=== PATIENT | female | born 1965 | race Caucasian/White ===

== ENCOUNTER 2017-01-23 02:15 | Observation (INO) | payer BC ==
[~2017-01-23] VITALS: Ht 165.1 cm; Wt 87.3 kg
[~2017-01-23 02:15] MED LIST: ADDERALL XR 3030 MG PO; AMIODARONE HCL100 MG PO; AMLODIPINE BESY10 MG PO; AMLODIPINE BESYL5 MG PO; BENTYL20 MG PO; EXCEDRIN MIGRA1 EAC3 PO; HYDROCHLOROTHIA25 MG PO; IMITREX100 MG PO; IMODIUM MS REL1 EACH PO; LOPRESSOR25 MG PO; LOPRESSOR50 MG PO; NOHOMEMEDS; PREDNISONE10 M1 PO; RANITIDINE HCL150 MG PO; REGLAN10 MG PO; TOPROL XL100 MG PO; XANAX2 MG PO; ZOFRAN ODT4 MG PO; ZOLOFT100 MG PO
[2017-01-23 02:48] LABS: BASOPHIL COUNT 0.1 K/uL (0-0.1); EOSINOPHIL (%) 6.6 % (0-5); EOSINOPHIL COUNT 0.7 K/uL (0-0.3); HEMATOCRIT 42.9 % (36.0-46.0); IMMATURE GRANULOCYTE (%) 0.8 % (0.0-0.7); IMMATURE GRANULOCYTE COUNT 0.1 K/uL; INSTRUMENT ABS NEUTROPHIL CT 5.5 K/uL; LYMPHOCYTE COUNT 3.2 K/uL (1.0-2.8); MCH 28.3 PG (29.0-34.0); MCHC 31.5 G/DL (30.0-36.0); MCV 89.9 FL (83-99); NEUTROPHIL COUNT 5.5 K/uL (1.8-6.4); PLATELET COUNT 262 K/uL (156-360); RBC DIS.WIDTH-SD 42.5 % (39-53); RED BLOOD COUNT 4.77 M/uL (3.80-5.20); WHITE BLOOD COUNT 10.5 K/uL (4.1-10.2)
[2017-01-23 02:55] LABS: CHLORIDE 109 mEq/L (99-109); POTASSIUM 3.7 mEq/L (3.7-5.4); SODIUM 143 mEq/L (136-147)
[2017-01-23 02:57] LABS: GLUCOSE 108 mg/dL (70-99)
[2017-01-23 02:59] LABS: ANION GAP 8 MEQ/L (2-14); TOTAL BILIRUBIN 0.3 mg/dL (0.0-1.0)
[2017-01-23 03:01] LABS: ALKALINE PHOSPHATASE 115 IU/L (3-129); GFR ESTIMATE (CALCULATED) > 59 mL/min/
[2017-01-23 03:02] LABS: UREA NITROGEN (BUN) 18 mg/dL (9-23)
[2017-01-23 03:10] LABS: TROP-I INTERPRETATION NEGATIVE; TROPONIN-I < 0.01 ng/mL (0.0-0.30)
[2017-01-23 07:40] LABS: D-DIMER ELISA 0.35 mg/L FEU (< 0.57)
[2017-01-23] MEDS ORDERED: TOPIRAMATE200 MG PO (08:38)
[2017-01-23] MEDS ORDERED: VYVANSE70 MG PO (08:38)
[2017-01-23 09:06] VITALS: BP 125/77
[2017-01-23 10:45] LABS: TROP-I INTERPRETATION NEGATIVE; TROPONIN-I < 0.01 ng/mL (0.0-0.30)
[2017-01-23 11:29] VITALS: BP 133/72
[2017-01-23 14:56] VITALS: BP 119/56
[2017-01-23 16:13] LABS: TROP-I INTERPRETATION NEGATIVE; TROPONIN-I < 0.01 ng/mL (0.0-0.30)
== END 2017-01-23 19:49 | disposition home or self-care (01) ==
LOC: EME 02:15 → EDOF 06:53 → 5WEST 09:02
PROVIDERS: Emergency Medicine; Hospitalist; Nurse Practitioner Adult Health
DX: R07.89 Other chest pain (principal); R94.31 Abnormal electrocardiogram [ECG] [EKG]; I10 Essential (primary) hypertension; G43.909 Migraine, unspecified, not intractable, without status migrainosus; F32.9 Major depressive disorder, single episode, unspecified; I44.7 Left bundle-branch block, unspecified
CPT/HCPCS: 71020; 80053; 83880; 84484; 85025; 85379; 93005; 93306; 99281; 99285; G0378

== ENCOUNTER 2017-01-25 18:00 | Observation (INO) | payer BC ==
[~2017-01-25] VITALS: Ht 165.1 cm; Wt 89.5 kg
[~2017-01-25 18:00] MED LIST changes: +TOPIRAMATE200 MG PO; +VYVANSE70 MG PO
[2017-01-25 18:58] LABS: HEMATOCRIT 47.8 % (36.0-46.0); MCH 28.5 PG (29.0-34.0); MCHC 31.6 G/DL (30.0-36.0); MCV 90.2 FL (83-99); MEAN PLAT.VOLUME 10.9 uM^3 (9.5-12.4); PLATELET COUNT 285 K/uL (156-360); RBC DIS.WIDTH-CV 12.9 % (11.8-14.6); RBC DIS.WIDTH-SD 42.8 % (39-53); WHITE BLOOD COUNT 11.3 K/uL (4.1-10.2)
[2017-01-25 19:09] LABS: PROTHROMBIN TIME 10.2 (9.2-11.2)
[2017-01-25 19:10] LABS: CHLORIDE 111 mEq/L (99-109); POTASSIUM 3.9 mEq/L (3.7-5.4); SODIUM 142 mEq/L (136-147)
[2017-01-25 19:13] LABS: GLUCOSE 113 mg/dL (70-99)
[2017-01-25 19:14] LABS: ANION GAP 10 MEQ/L (2-14)
[2017-01-25 19:16] LABS: GFR ESTIMATE (CALCULATED) > 59 mL/min/
[2017-01-25 19:17] LABS: UREA NITROGEN (BUN) 13 mg/dL (9-23)
[2017-01-25 19:22] LABS: TROP-I INTERPRETATION NEGATIVE; TROPONIN-I < 0.01 ng/mL (0.0-0.30)
[2017-01-25 19:24] LABS: ALKALINE PHOSPHATASE 162 IU/L (3-129); TOTAL BILIRUBIN 0.2 mg/dL (0.0-1.0)
[2017-01-25] MEDS ORDERED: RANITIDINE HCL150 MG PO (21:58)
[2017-01-25 22:06] LABS: TROP-I INTERPRETATION NEGATIVE; TROPONIN-I < 0.01 ng/mL (0.0-0.30)
[2017-01-25] MEDS ORDERED: LAMICTAL200 MG PO (23:35)
[2017-01-26 02:45] LABS: LIPASE 61 U/L (1.0-51.0)
[2017-01-26 03:13] LABS: HDL CHOLESTEROL 47 MG/DL (Desirable>=50); LDL CHOLESTEROL 133 mg/dL (Desirable<100); NON-HDL CHOLESTEROL 188 mg/dL (Desirable<160); TOTAL CHOLESTEROL 235 mg/dL (Desirable<200); TRIGLYCERIDES 275 MG/DL (Normal: <150)
[2017-01-26 03:22] VITALS: BP 126/83
[2017-01-26 07:32] LABS: ALKALINE PHOSPHATASE 145 IU/L (3-129); ANION GAP 8 MEQ/L (2-14); CHLORIDE 104 MEQ/L (99-109); GFR ESTIMATE (CALCULATED) > 59 mL/min/; GLUCOSE 101 mg/dL (70-99); POTASSIUM 4.2 MEQ/L (3.7-5.4); SAMPLE HEMOLYSIS CHECK 0; SAMPLE ICTERIC CHECK 0; SAMPLE LIPEMIA CHECK 0; SODIUM 139 MEQ/L (136-147); TOTAL BILIRUBIN 0.3 MG/DL (0.0-1.0); UREA NITROGEN (BUN) 13 mg/dL (9-23)
[2017-01-26 08:00] VITALS: BP 101/77
[2017-01-26 11:51] VITALS: BP 100/70
[2017-01-26 12:48] LABS: HEMATOCRIT 45.6 % (36.0-46.0); MCV 92.1 FL (83-99)
[2017-01-27 09:33] LABS: Estimated Average Glucose 117 mg/dL (70-123); HEMOGLOBIN A1c (GLYCOHEMOGLOB) 5.7 % HGB (Below 5.7)
== END 2017-01-26 15:15 | disposition home or self-care (01) ==
LOC: EME 18:00 → 5SOUTH 01-26 01:23 → EDOF 01-26 01:23 → 5SOUTH 01-26 02:35
PROVIDERS: Hospitalist; Internal Medicine; Physician Assistant
DX: R20.0 Anesthesia of skin (principal); R07.9 Chest pain, unspecified; J45.909 Unspecified asthma, uncomplicated; G43.909 Migraine, unspecified, not intractable, without status migrainosus; K21.9 Gastro-esophageal reflux disease without esophagitis; F32.9 Major depressive disorder, single episode, unspecified; I10 Essential (primary) hypertension; E66.9 Obesity, unspecified; Z68.32 Body mass index [BMI] 32.0-32.9, adult; K76.0 Fatty (change of) liver, not elsewhere classified; I44.7 Left bundle-branch block, unspecified
CPT/HCPCS: 70450; 70551; 76705; 80053; 80061; 82607; 83036; 83690; 84443; 84484; 85014; 85018; 85027; 85610; 93005; 93880; 99281; 99285; G0378; G0480

== ENCOUNTER 2018-03-16 19:28 | Inpatient (IN) | payer BC ==
[~2018-03-16] VITALS: Ht 167.6 cm; Wt 79.0 kg
[~2018-03-16 19:28] MED LIST changes: +LAMICTAL200 MG PO
[2018-03-16 20:47] LABS: HEMATOCRIT 46.1 % (36.0-46.0); HEMOGLOBIN 15.4 G/DL (11.9-15.5); MCH 28.6 PG (29.0-34.0); MCHC 33.4 G/DL (30.0-36.0); MCV 85.7 FL (83-99); RBC DIS.WIDTH-CV 14.5 % (11.8-14.6); RBC DIS.WIDTH-SD 45.5 % (39-53); RED BLOOD COUNT 5.38 M/uL (3.80-5.20)
[2018-03-16 21:08] LABS: TROP-I INTERPRETATION NEGATIVE; TROPONIN-I < 0.01 ng/mL (0.0-0.30)
[2018-03-16 21:27] LABS: PLAT.SUFFICIENCY ADEQUATE; PLATELET COUNT 214 K/uL (156-360)
[2018-03-16 22:10] LABS: POTASSIUM ND MEQ/L (3.7-5.4)
[2018-03-16 22:17] LABS: CHLORIDE 94 mEq/L (99-109); SODIUM 134 mEq/L (136-147)
[2018-03-16 22:18] LABS: GLUCOSE 128 mg/dL (70-99)
[2018-03-16 22:22] LABS: CREATININE 1.1 mg/dL (0.6-1.3); GFR ESTIMATE (CALCULATED) 55 mL/min/
[2018-03-16 22:23] LABS: UREA NITROGEN (BUN) 19 mg/dL (9-23)
[2018-03-16 22:42] LABS: POTASSIUM 3.2 mEq/L (3.7-5.4)
[2018-03-17] MEDS ORDERED: [UNRECOGNIZED DRUG - REMARK]
[2018-03-17 01:55] VITALS: BP 101/68
[2018-03-17 04:40] VITALS: BP 101/65
[2018-03-17 06:06] LABS: BASOPHIL (%) 0.2 % (0-1); EOSINOPHIL (%) 0 % (0-5); HEMOGLOBIN 14.2 G/DL (11.9-15.5); IMMATURE GRANULOCYTE (%) 0.6 % (0.0-0.7); LYMPHOCYTE (%) 7.6 % (15-42); LYMPHOCYTE COUNT 0.9 K/uL (1.0-2.8); MCH 27.9 PG (29.0-34.0); MCHC 32.3 G/DL (30.0-36.0); MCV 86.4 FL (83-99); MONOCYTE (%) 5.5 % (3-12); MONOCYTE COUNT 0.7 K/uL (0-0.8); NEUTROPHIL (%) 86.1 % (45-76); NEUTROPHIL COUNT 10.6 K/uL (1.8-6.4); PLATELET COUNT 177 K/uL (156-360); RBC DIS.WIDTH-CV 14.5 % (11.8-14.6); RBC DIS.WIDTH-SD 46.1 % (39-53); RED BLOOD COUNT 5.09 M/uL (3.80-5.20); WHITE BLOOD COUNT 12.4 K/uL (4.1-10.2)
[2018-03-17 06:30] LABS: CHLORIDE 99 MEQ/L (99-109); CREATININE 0.8 MG/DL (0.6-1.3); GFR ESTIMATE (CALCULATED) > 59 mL/min/; POTASSIUM 3.8 MEQ/L (3.7-5.4); SODIUM 137 MEQ/L (136-147); UREA NITROGEN (BUN) 18 mg/dL (9-23)
[2018-03-17 06:33] LABS: GLUCOSE 231 mg/dL (70-99)
[2018-03-17 07:58] VITALS: BP 112/72
[2018-03-17 11:43] VITALS: BP 105/63
[2018-03-17 16:05] VITALS: BP 116/59
[2018-03-17 20:00] VITALS: BP 115/60
[2018-03-18] VITALS (7 sets, daily range): BP systolic 115–149; BP diastolic 60–95
[2018-03-19 04:04] VITALS: BP 152/91
[2018-03-19 07:27] VITALS: BP 123/79
[2018-03-19 12:15] VITALS: BP 140/85
[2018-03-19] MEDS ORDERED: MEDROL DOSEPAK4 MG PO (13:42)
[2018-03-19] MEDS ORDERED: CEFDINIR300 MG PO (13:45)
[2018-03-19] MEDS ORDERED: FAMOTIDINE20 MG PO (13:45)
[2018-03-19] MEDS ORDERED: VENTOLIN HFA18 GM IH (13:46)
[2018-03-19] MEDS ORDERED: ROBITUSSIN100 MG/5 M PO (13:47)
[2018-03-19 15:30] VITALS: BP 140/82
== END 2018-03-19 18:03 | disposition home or self-care (01) | DRG 202 ==
LOC: EME 19:28 → 5SOUTH 03-17 00:11 → EDOF 03-17 00:11 → ENRESERV 03-17 00:13 → 5SOUTH 03-17 01:31
PROVIDERS: Emergency Medicine; Hospitalist
DX: J45.21 Mild intermittent asthma with (acute) exacerbation (principal); J18.0 Bronchopneumonia, unspecified organism; G43.909 Migraine, unspecified, not intractable, without status migrainosus; I27.20 Pulmonary hypertension, unspecified; I44.7 Left bundle-branch block, unspecified; I10 Essential (primary) hypertension; I36.1 Nonrheumatic tricuspid (valve) insufficiency; K21.9 Gastro-esophageal reflux disease without esophagitis; R94.31 Abnormal electrocardiogram [ECG] [EKG]; F32.9 Major depressive disorder, single episode, unspecified; F41.9 Anxiety disorder, unspecified; Z90.710 Acquired absence of both cervix and uterus; Z91.040 Latex allergy status; Z88.1 Allergy status to other antibiotic agents; Z82.49 Family history of ischemic heart disease and other diseases of the circulatory system
CPT/HCPCS: 71046; 71275; 80048; 84484; 84999; 85025; 85027; 85379; 87040; 87070; 87205; 87449; 93005; 94640; 94640 76; 94760; 94799; 99202; 99281; 99285; J0456; J0696; J0780; J1100; J1200; J1650; J1885; J2930; J7030